=== PATIENT | male | born 1990 | race Caucasian/White ===

== ENCOUNTER 2024-05-07 11:08 | Outpatient (AMB) | payer OTHER, SELFPAY ==
--- NOTE | 2024-05-07 11:10 | MHC.PC.OV ---
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 Request Intake Note: patient here for New patient visit Bull Fiddle Player Required: No Allergies No Known Allergies Allergy (Verified 05/07/24 11:24) Medication List - Last Reconciled 05/07/24 by Zenia Hua CNP No Known Home Meds Tobacco use date assessed: 05/07/24 Dental Screening Dental Screen Date: 05/07/24 Did you have a dental visit in the last 12 months?: Yes Did you have a dental problem in the last 6 months where you did not have access to dental care?: No Was dental information given to patient?: Patient has dentist HPI HPI Comments History of Present Illness Details New patient Prior PCP:?ROBERT To. Does not recall name of provider or practice Last office Labs/visit/CPE: 2020 Acute issue(s): Dry skin to bilateral upper extremities The patient is a 33-year-old male presenting for a new patient visit to establish care. He previously saw a provider in 2020 for a physical exam and laboratory workup. The patient reports no known chronic medical conditions and is not currently taking any medications. He has no surgical history. However, he mentions a history of dry skin, particularly exacerbated during the winter, causing discomfort and itching. He uses a non-scented lotion to manage the dryness, yet reports that it sometimes causes significant discomfort. Family history includes maternal hypertension and paternal diabetes. The patient's lifestyle adjustments include recent efforts to improve diet and exercise habits after reaching a weight of 229 pounds, with a BMI of 32.9, denoting obesity. Health Maintenance - Comprehensive blood work ordered to evaluate kidney and liver function, cholesterol, and other markers. - Discussion on flu vaccination concluded with agreement to receive the vaccine at today's visit. - Last tetanus vaccine was at childhood. Advised on tetanus vaccine, though patient opted out for today. - Advised on healthy dietary changes to manage weight and reduce BMI from current 32.9. - Encouragement to maintain regular physical activity, reported as three days per week at the gym. - Recommended use of moisturizers such as Cetaphil or Lubriderm for dry skin management, and advised on the use of hydrocortisone cream for itching. Social History - Employment: Works in [employer] in [place]. - Substance Use: Denies smoking and alcohol use; uses flavored vape on and off approximately 10 days a month. - Exercise: Attends the gym three times weekly. - Nutritional Intake: Attempting to eat healthily and avoid carbohydrates to manage weight gain. - Weight Management: Currently weighs 229 pounds; BMI is 32.9. Previously 180 pounds. - Eye Exams: Conducted annually at work, last performed in May 2023. - Dental Care: Seen for dental cleaning in September 2023, routine every six months. 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 1. Little interest or pleasure in doing things: not at all 2. Feeling down, depressed, or hopeless: not at all 3. Trouble falling or staying asleep, or sleeping too much: not at all 4. Feeling tired or having little energy: not at all 5. Poor appetite or overeating: not at all 6. Feeling bad about yourself - or that you are a failure or have let yourself or your family down: not at all 7. Trouble concentrating on things, such as reading the newspaper or watching television: not at all 8. Moving or speaking so slowly that other people could have noticed. Or the opposite - being so fidgety or restless that you have been moving around a lot more than usual: not at all 9. Thoughts that you would be better off or of hurting yourself in some way: not at all Total score: 0 Depression Screening Interpretation: Negative Depression Screening Done: Yes 24629 - PHQ-9 Billing: Yes Source: Developed by Drs. Zane Killian, Evelin B.Adam Thomas and colleagues, with an educational atilio from [employer]. Thrive Questionnaire Date Thrive assessed: 05/07/24 I am a: Patient What is your living situation today?: I have a steady place to live Within the past 12 months, did the food you bought not last and you didn't have the money to get more?: Never true Within the past 12 months, did you worry whether your food would run out before you got money to buy more?: Never true Do you have trouble paying for medicines?: No Do you have trouble getting transportation to medical appointments?: No Do you have trouble paying your heating and electricity bill?: No Do you have trouble taking care of your child, family member or friend?: No Do you have trouble with day-to-day activities such as bathing, preparing meals, shopping, managing finances, etc.?: No Are you currently unemployed and looking for a job?: No Are you interested in more education?: Yes Please select the resources that you would like help with: Education Currently or been in a relationship where the following occur: No concerns reported THRIVE Score: 0 AUDIT C Alcohol Use Questionnaire (AUDIT-C) 1. How often do you have a drink containing alcohol?: Never 3. How often do you have six or more drinks on one occasion?: Never Total Score: 0 Score Reviewed/Action Taken: Yes RUTH-7 AMB Questionnaire RUTH-7 Date RUTH - 7 assessed: 05/07/24 Feeling nervous, anxious, or on edge: 0 = Not at all Not being able to stop or control worryin = Not at all Worrying too much about different things: 0 = Not at all Trouble relaxin = Not at all Being so restless that it is hard to sit still: 0 = Not at all Becoming easily annoyed or irritable: 0 = Not at all Feeling afraid as if something awful might happen: 0 = Not at all Total RUTH-7 score (0-4 normal; 5-9 mild; 10-14 moderate; 15-21 severe): 0 Source: Developed by Drs. Zane Killian, Adam Wells and colleagues, with an educational atilio from [employer]. RUTH-7 Assessment Billing RUTH-7 Assessment Tool: RUTH-7 Assessment 85035 Review of Systems Const Details: Denies chills, Denies fatigue, Denies fever(s), Denies headache(s) and Denies weakness HEENT Denies change in vision, Denies dizziness, Denies headache(s), Denies hearing loss, Denies nasal congestion, Denies sinus pain, Denies sinus pressure and Denies sore throat Card Denies chest pain, Denies lightheadedness, Denies dyspnea and Denies other (palpitations) Resp Denies cough, Denies dyspnea and Denies wheezing GI Denies abdominal pain, Denies melena, Denies hematochezia, Denies change in bowel habits, Denies dyspepsia and Denies nausea Denies hematuria and Denies dysuria Musc Denies abnormal gait, Denies myalgias, Denies arthralgias, Denies numbness and Denies tingling Skin/Breast Reports dry skin during winter, particularly on exposed areas of his arms, with occasional itching, Denies rash, Denies unusual bruising and Denies wounds Neuro Denies abnormal gait, Denies dizziness, Denies headache(s), Denies memory loss, Denies numbness, Denies Sensory deficit (Neuro), Denies tingling and Denies weakness Psych Denies anxiety, Denies depression and Denies memory loss Endo Denies cold intolerance, Denies fatigue, Denies heat intolerance, Denies polydipsia and Denies polyuria [place]/Lymph Denies easy bleeding and Denies easy bruising Aller/Immun Denies wheezing Physical exam (Primary Care) Vital Signs: Last Vital Signs Temp 97.5 F 05/07/24 11:18 Pulse 58 05/07/24 11:18 Resp 16 05/07/24 11:18 BP 124/73 05/07/24 11:18 Pulse Ox 97 05/07/24 11:18 Oxygen Delivery Method Room Air 05/07/24 11:18 BMI result Body Mass Index 32.9 Tobacco/Smoking Status: Tobacco use Status Tobacco use date assessed 05/07/24 05/07/24 11:23 Patient Tobacco Use Status Never used Tobacco 05/07/24 11:23 e-Cigarette/Vaping Use Currently Using (sometimes) 05/07/24 11:23 PHQ-9: PHQ-9 Score PHQ-9: Total score 0 05/07/24 12:10 Depression Screening Interpretation: Negative Thrive Assessment: Date of Thrive Assessment Date Thrive assessed 05/07/24 05/07/24 11:13 Currently or been in a relationship where the following occur: No concerns reported Const Other: General: no acute distress, well developed, alert and awake Nutritional Appearance: well nourished Orientation/consciousness: patient oriented x3 [facility] Head: Yes normocephalic and Yes atraumatic Ears: hearing grossly normal bilaterally and TM's normal bilaterally General nose exam: Normal external nose present and Normal nares present Mouth: Normal oral and palatal mucosa present and moist mucous membranes Teeth and gingiva: dentition normal Throat: Yes oropharynx normal Eyes Pupils: Equal, round and reactive pupils present and Pupil accommodation reflex normal EOM: EOMs intact bilaterally Neck Neck: Yes normal visual inspection, Yes no lymphadenopathy and Yes trachea midline Thyroid: Thyroid normal Carotids: no bruits Lymphatic: no lymphadenopathy noted Chest Chest palpation & inspection: normal inspection of the chest Resp Effort & Inspection: normal respiratory effort Auscultation: clear to auscultation bilaterally Cardio Rate: regular rate Rhythm: regular rhythm Heart sounds: S1 normal heart sound present, S2 normal heart sound present, no gallops, no murmurs and no rubs Bruits: no abdominal aortic bruits and no carotid bruits GI Palpation (GI): No Abdominal aortic bruit present, Soft to palpation, nontender, No hepatosplenomegaly present and No Rebound tenderness present Auscultation: normal bowel sounds General: Yes no CVA tenderness Back/Spine/Pelvis Back: no CVA tenderness Cervical Spine: cervical ROM normal and No Cervical spine tenderness Thoracic/Lumbar Spine: thoraco-lumbar ROM normal, No pain with thoraco-lumbar ROM, No thoracic spinal tenderness and No lumbar spinal tenderness Skin General: warm and dry. Normal skin color. Normal skin turgor. Dry skin noted to both arms Lesions: no lesions Rashes: no rashes Trauma: no lacerations or abrasions Wounds: no wounds Nails: normal Neuro General: patient oriented x3, gait normal and CN's II-XI intact bilaterally Cranial nerves: Yes Equal, round and reactive pupils present Cognition (Neuro): normal cognition Gait exam (Neuro): Normal gait present Motor exam (neuro): 5/5 motor strength present throughout Sensory Exam: No Sensory deficit (Neuro) Deep tendon reflexes (DTR's): Right patellar reflex intensity grade: 2+ and Left patellar reflex intensity grade: 2+ Extrem General: Yes normal to inspection, No edema and No calf tenderness Psych Appearance: grossly normal Affect: normal affect Attitude: cooperative Thought process: Normal thought process present Office Procedures Flu Questionnaire Does the patient have a severe egg allergy?: No Does the patient have severe life threatening allergies?: No Does the patient have a fever or illness today?: No Has the patient ever had Guillain-[place] Syndrome?: No Has the patient ever had any past reaction to a flu shot?: No Immunizations Fluarix Triv [id number] (PF) 45 mcg (15 mcg x 3)/0.5 mL IM syringe Performing Provider: Zenia Hua CNP Performing Location: [facility] Administered by: Maty Alexander RN on 05/07/24 12:09 Dose Route Admin Location Dispensed Lot Number Expiration Date NDC Manager Of Compensation 0.5 mL IM Left Deltoid 0.5 mL [id number] 11/23/24 [id number] [place] VIS Given Date VIS Provided VIS Publication Date 05/07/24 Single Vaccine 20 Eligibility Eligibility Date Funding Source Not [facility] Eligible 05/07/24 Private Coding Level of Care Code New Pt Level 3 (19589) New Pt Prev Care 18-39yr(88066 Diagnoses Normal physical examination, routine Z00.00 Laboratory tests ordered as part of a complete physical exam (CPE) Z00.00 Obesity (BMI 30.0-34.9) E66.811 Dry skin dermatitis L85.3 Additional Codes RUTH-7 Assessment Billing - RUTH-7 Assessment Tool: RUTH-7 Assessment 76420 ([id number]) PHQ-9 - 96426 - PHQ-9 Billing: Yes ([id number]) Assessment & Plan Assessment & Plan (1) Normal physical examination, routine: Code(s): Z00.00 - Encounter for general adult medical examination without abnormal findings Category: Medical Plan: No significant physical limitations noted. (2) Laboratory tests ordered as part of a complete physical exam (CPE): Code(s): Z00.00 - Encounter for general adult medical examination without abnormal findings Category: Medical Plan: Fasting labs ordered as part of a complete physical exam. Advised to fast for at least 10 hours before getting labs drawn. May drink water Verbalized understanding and agreed with treatment plan. (3) Obesity (BMI 30.0-34.9): Code(s): E66.811 - Obesity, class 1 Category: Medical Plan: He currently weighs 229 lb, BMI is 32.9. He will continue to make healthy dietary changes and exercise routinely. He will follow-up as needed. (4) Dry skin dermatitis: Code(s): L85.3 - Xerosis cutis Category: Medical Plan: Encouraged to use moisturizers such as Cetaphil or Lubriderm to dry skin on his arms. May use hydrocortisone cream for itching. Follow-up with worsening or new signs and symptoms. Verbalized understanding and agreed with the plan. Plan I discussed with the patient the importance of maintaining regular healthcare visits to establish a baseline for ongoing health support and prevention. We reviewed his current weight issues and the significance of a healthy diet and regular physical activity to improve his BMI and overall wellness. Management options for his dry skin were addressed, emphasizing proper moisturizing techniques and the intermittent use of hydrocortisone cream for itching relief. We talked about the flu vaccine and its necessity ahead of the flu season, and he consented to receive it during today's visit. I provided details on the potential benefit of the tetanus vaccine but noted that the patient declined it for now. I informed him about the upcoming comprehensive blood workup, advising him on fasting prior to the procedure to ensure accurate results. Lastly, I instructed on monitoring symptoms and attending his follow-up to discuss laboratory findings and any further management. Orders: Orders Complete Blood Count Auto Diff Today Z00.00 - Encounter for general adult medical examination without abnormal findings Comprehensive [place]. Panel Fast Today Z00.00 - Encounter for general adult medical examination without abnormal findings Lipid Panel Today Z00.00 - Encounter for general adult medical examination without abnormal findings TSH reflex Free T4 Today Z00.00 - Encounter for general adult medical examination without abnormal findings UA CC w/rflx Micro + Cult Today Z00.00 - Encounter for general adult medical examination without abnormal findings Influenza [id number] Immunization Today Z23 - Encounter for immunization Patient Instructions: - Receive flu vaccine today. - Begin using hydrocortisone cream as needed for itchy skin. - Use Cetaphil or Lubriderm moisturizer frequently for dry skin. - Maintain physical activity at least three times a week. - Follow dietary adjustments to manage weight and evaluate progress at the next visit. - Fast for 10-12 hours before completing the scheduled comprehensive blood work. Drink only water during this fasting period. - Return for telehealth follow-up in 2-3 weeks to discuss blood work results. - Monitor for any significant changes in symptoms, and seek care if necessary. Patient was informed and verbally consented to the use of an ambient scribe for clinic note documentation during this visit.
[2024-05-07 11:18] VITALS: BP 124/73; PULSE 58; RESP 16; TEMP 36.4; O2SAT 97; BMI 32.9
== END 2024-05-07 12:06 | disposition home or self-care (01) ==
PROVIDERS: PCP Nurse Practitioner Family; Visit Provider Nurse Practitioner Family
DX: Z00.00 Encounter for general adult medical examination without abnormal findings (principal); E66.811 Obesity, class 1; L85.3 Xerosis cutis; Z68.32 Body mass index [BMI] 32.0-32.9, adult; Z23 Encounter for immunization

== ENCOUNTER → 2024-05-07 11:08 | Outpatient (BNVA) | payer OTHER, SELFPAY | PROVIDERS: PCP Nurse Practitioner Family; Visit Provider Nurse Practitioner Family | DX: Z00.00 Encounter for general adult medical examination without abnormal findings (principal); Z23 Encounter for immunization; E66.811 Obesity, class 1; Z68.32 Body mass index [BMI] 32.0-32.9, adult; L85.3 Xerosis cutis | CPT/HCPCS: 90471; 90656; 96127 ==

== ENCOUNTER 2024-05-26 09:24 | Outpatient (REF) | payer OTHER, SELFPAY ==
[2024-05-26 11:25] LABS: MANUAL DIFF FLAG NO
[2024-05-26 11:28] LABS: Basophils Percent Auto 0.4 % (0-2); Eosinophils Absolute Auto 0.2 X10*3/uL (0.0-0.4); Eosinophils Percent Auto 2.5 % (0-4); Hematocrit 38.7 % (42.0-52.0); Hemoglobin 13.5 g/dl (14.0-18.0); Imm Gran Abs Auto 0.02 X10*3/uL (0.00-0.03); Imm Gran Pct Auto 0.3 % (0.0-0.4); Lymphocytes Absolute Auto 2.8 X10*3/uL (1.2-4.9); Lymphocytes Percent Auto 41.1 % (20-40); Mean Corpuscular HGB Conc 34.9 g/dl (31.0-36.0); Mean Corpuscular Hemoglobin 28.5 pg (27.0-33.0); Mean Corpuscular Volume 81.8 fL (80.0-98.0); Monocytes Absolute Auto 0.6 X10*3/uL (0.1-1.2); Monocytes Percent Auto 8.5 % (2-11); Neutrophils Absolute Auto 3.2 x10*3/uL (2.0-8.3); Neutrophils Percent Auto 47.2 % (45-73); Platelet Count 271 X10*3/uL (160-400); Red Blood Count 4.73 X10*6/uL (4.60-5.80); Red Cell Distribution Width 13.1 % (11.0-16.0); White Blood Count 6.7 X10*3/uL (4.8-10.8)
[2024-05-26 12:27] LABS: Alanine Aminotransferase 31 U/L (0-40); Albumin Level 4.2 g/dL (3.5-5.0); Alkaline Phosphatase 70 U/L (39-117); Anion Gap 10 (12-20); Aspartate Amino Transferase 31 U/L (5-37); Bilirubin Total 0.8 mg/dL (0.0-1.0); Blood Urea Nitrogen 13 mg/dL (9-16); Calcium 9.2 mg/dL (8.4-10.2); Carbon Dioxide 25 mmol/L (22-29); Chloride 108 mmol/L (96-108); Cholesterol 184 mg/dL (<200); Estimated Glomerular Filt Rate > 60; Glucose Fasting 87 mg/dL (60-99); HDL Cholesterol 40 mg/dL (>40); LDL Cholesterol Calculated 128 mg/dL (<100); Sodium 139 mmol/L (135-145); Total Protein 7.4 g/dL (6.5-8.0); Triglycerides 81 mg/dL (<150)
[2024-05-26 12:31] LABS: TSH reflex Free T4 2.61 uIU/mL (0.32-4.0)
[2024-05-26 15:13] LABS: Appearance Urine Clear; Color Urine Yellow; Glucose Urine UA Negative (Negative); Leukocyte Esterase Urine Negative (Negative); Nitrite Urine Negative (Negative); Urine Blood Negative (Negative); Urine Ketones Negative (Negative); Urine Protein Negative (Neg-Trace)
== END 2024-05-26 09:25 | disposition home or self-care (01) ==
LOC: HO.WFDLDS 09:24
PROVIDERS: Visit Provider Nurse Practitioner Family
DX: Z00.00 Encounter for general adult medical examination without abnormal findings (principal)
CPT/HCPCS: 36415; 80053; 80061; 81003; 84443; 85025

== ENCOUNTER 2024-05-29 14:30 | Outpatient (AMB) | payer OTHER, SELFPAY ==
--- NOTE | 2024-05-29 14:25 | A.OFFPC_ITS ---
Intake Visit Reasons: Telehealth 2-3 wks, labs review Intake Note: patient here for teleheath for lab review Calliope Player Required: No Allergies No Known Allergies Allergy (Verified 05/29/24 14:26) Tobacco use date assessed: 05/29/24 Dental Screening Dental Screen Date: 05/29/24 Did you have a dental visit in the last 12 months?: Yes Did you have a dental problem in the last 6 months where you did not have access to dental care?: No Was dental information given to patient?: Patient has dentist HPI HPI Comments History of Present Illness Details 33-year-old male presents for telehealth visit for review of recent lab results. He offers no complaints and denies acute symptoms at this time. 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 Current occupational exposures/hazards: No Cognitive needs: No Hearing needs: No Vision needs: No Questionnaire Thrive Questionnaire Date Thrive assessed: 05/06/24 I am a: Patient What is your living situation today?: I have a steady place to live Within the past 12 months, did the food you bought not last and you didn't have the money to get more?: Never true Within the past 12 months, did you worry whether your food would run out before you got money to buy more?: Never true Do you have trouble paying for medicines?: No Do you have trouble getting transportation to medical appointments?: No Do you have trouble paying your heating and electricity bill?: No Do you have trouble taking care of your child, family member or friend?: No Do you have trouble with day-to-day activities such as bathing, preparing meals, shopping, managing finances, etc.?: No Are you currently unemployed and looking for a job?: No Are you interested in more education?: Yes Please select the resources that you would like help with: Education Currently or been in a relationship where the following occur: No concerns reported THRIVE Score: 0 RUTH-7 AMB Questionnaire RUTH-7 Date RUTH - 7 assessed: 05/07/24 Source: Developed by Drs. Zane Killian, Evelin Love, Adam San and colleagues, with an educational atilio from [employer]. Review of Systems Const Details: Const Denies chills, Denies fatigue, Denies fever(s), Denies headache(s) and Denies weakness ENT Denies dizziness and Denies headache(s) Card Denies chest pain, Denies lightheadedness, Denies dyspnea and Denies other (Palpitations) Resp Denies cough, Denies dyspnea, Denies wheezing and Denies other ( shortness of breath) GI Denies abdominal pain, Denies melena, Denies hematochezia, Denies change in bowel habits, Denies dyspepsia and Denies nausea Denies hematuria and Denies dysuria Musc Denies abnormal gait, Denies myalgias, Denies arthralgias, Denies numbness and Denies tingling Skin/Breast Denies rash, Denies unusual bruising and Denies wounds Neuro Denies abnormal gait, Denies dizziness, Denies headache(s), Denies memory loss, Denies numbness, Denies Sensory deficit (Neuro), Denies tingling and Denies weakness Psych Denies anxiety, Denies depression, Denies memory loss Endo Denies cold intolerance, Denies fatigue, Denies heat intolerance, Denies polydipsia and Denies polyuria Aller/Immun Denies wheezing Physical exam (Primary Care) Tobacco/Smoking Status: Tobacco use Status Tobacco use date assessed 05/29/24 05/29/24 14:28 Patient Tobacco Use Status Never used Tobacco 05/29/24 14:28 e-Cigarette/Vaping Use Currently Using (sometimes) 05/29/24 14:28 Thrive Assessment: Date of Thrive Assessment Date Thrive assessed 05/06/24 05/29/24 14:28 Currently or been in a relationship where the following occur: No concerns reported Const Other: Telehealth visit. No physical exam. Telehealth Telehealth Telehealth Platform: Telephone Location of provider rendering services: practice address Location of patient: address on file Patient Identification confirmed using: Name, : Yes Patient verbally consented to treatment: Yes Patient verbally consented to billing insurance company: Yes Patient informed of any privacy concerns related to visit: Yes Coding Level of Care Code Tele New Pt Level 3 (06036) Diagnoses Mild anemia D64.9 Elevated LDL cholesterol level E78.00 Time Spent (min) 10 Assessment & Plan Assessment & Plan (1) Mild anemia: Code(s): D64.9 - Anemia, unspecified Category: Medical Plan: Recent H&H is slightly elevated, 13.5 and 38.7 respectively. MCV is on the low end of normal, 81.8. Will recheck CBC. Will check iron profile, folate and vitamin B12 levels. Will make changes as needed. Verbalized understanding and agreed with the plan. (2) Elevated LDL cholesterol level: Code(s): E78.00 - Pure hypercholesterolemia, unspecified Category: Medical Plan: Recent LDL level is slightly elevated, 128; HDL level is slightly low, 40. He admits to consuming significant amount of meat, whole diary, and cheese. Advised to limit foods high in saturated fat and avoid foods high in trans fat. Routine exercise encouraged. Fast for 10-12 hours, may drink water, and get blood work done 2-3 days before next visit. Follow-up for telehealth visit in 2 months or sooner with symptoms or concerns. Verbalized understanding and agreed with treatment plan. Orders: Orders Lipid Panel 2 Months E78.00 - Pure hypercholesterolemia, unspecified Complete Blood Count no Diff Today D64.9 - Anemia, unspecified Vitamin B12 and Folate Today D64.9 - Anemia, unspecified IRON PROFILE Today D64.9 - Anemia, unspecified
== END 2024-05-29 14:43 | disposition home or self-care (01) ==
LOC: HO.HMCFM 14:30
PROVIDERS: PCP Nurse Practitioner Family; Visit Provider Nurse Practitioner Family
DX: D64.9 Anemia, unspecified (principal); E78.00 Pure hypercholesterolemia, unspecified

== ENCOUNTER → 2024-05-29 14:30 | Outpatient (BNVA) | payer OTHER, SELFPAY | PROVIDERS: PCP Nurse Practitioner Family; Visit Provider Nurse Practitioner Family ==

== ENCOUNTER 2024-07-28 15:21 | Outpatient (REF) | payer OTHER, SELFPAY ==
[2024-07-28 18:41] LABS: Cholesterol 172 mg/dL (<200); HDL Cholesterol 43 mg/dL (>40); LDL Cholesterol Calculated 119 mg/dL (<100); Triglycerides 50 mg/dL (<150)
--- OUTSIDE RECORDS SUMMARY | 2024-07-28 19:27 | XMS_ITS | Encounter Summary ---
Author Organization [facility] Address [address] [place] [address] Care Team Providers Care Embedded Firmware Engineer Name Role Phone Neil Segundo MD Primary Care Provider [phone] Encounter Details Date Type Department Care Team (Late st Contact Info) Description 03/18/2020 Scanned Document [address] [id number] Neil Segundo MD [address] [place] [id number] Social History Tobacco Use Types Packs/Day Years Used Date Smoking Tobacco: Never Smokeless Tobacco: Never Comments:smokes [place] once i n a while Alcohol Use Standard Drinks/Week Comments Never 0 (1 standard drink = 0.6 oz pur e alcohol) AUDIT-C Answer Date Recorded Q1: How often do you have a drink containing alc ohol? Never 03/08/2020 Average Number of Drinks Not on file 020 Frequency of Binge Drinking Not on file 02/24 PHQ-2 Answer Date Recorded PHQ-2 Total Score 0 03/08/2020 Sex and Gender Information Value Date Recorded Sex Assigned at Male 03/20/2024 10:23 AM EDT Gender Identity Male 08/27/2020 6:15 PM EDT Sexual Orientation Heterosexual (straight) 08/30 2:53 PM EDT COVID-19 Exposure Response Date Recorded In the last month, have you been in contact with someone who was confirmed or suspected to have Coronavirus / COVID-19? No / Unsure 03/08/2020 2:37 PM EDT documented as of this encounter Plan of Treatment Not on file documented as of this encounter Visit Diagnoses Not on filedocumented in this encounter Care Teams Embedded Firmware Engineer Relationship Specialty Start Date End Date Neil Segundo MD [address] [place] [address] PCP - General Internal Medicine 03/08/20 11/01/22 documented as of this encounter
--- OUTSIDE RECORDS SUMMARY | 2024-07-28 19:27 | XMS_ITS | Encounter Summary ---
Author Organization [facility] Address [address] [place] [address] Care Team Providers Care Sales Promotion Manager Name Role Phone Neil Segundo MD Primary Care Provider [phone] Encounter Details Date Type Department Care Team (Late st Contact Info) Description 08/09/2020 Lab Requisition [facility] Drive Through [address] [place], [place] [phone] Freeman Sheikh MD [address] [place] [address] Encounter for laboratory testing for COVID-19 virus Social History Tobacco Use Types Packs/Day Years [...] have Coronavirus / COVID-19? No / Unsure 07/17/2020 1:05 PM EST documented as of this encounter Plan of Treatment Not on file documented as of this encounter Procedures Procedure Name Priority Date/Time Associated Diagnosis Comments COVID-19 (SARS-COV-2) - [facility] Routine 08/09/2020 11:44 AM EDT Encounter for laboratory testing for COVID-19 virus [ICD-10-CM] documented in this encounter Results * COVID-19 (SARS-COV-2) (SEMA4) (08/09/2020 11:44 AM EDT) COVID-19 RT-PCR NOT-DETEC ELIZABETH Not-Detec elizabeth 08/10/2020 8:59 PM EDT [facility] Comment:Interpretation: The viral RNA was not detected, making the COVID-19 diagnosis less likely. Clinical correlation is highly recommended.Final report signed by Lana Cheng, Ph.D., Laboratory DirectorTests performed at [facility] Nasopharyngeal swab / Unknown 08/09/2020 11:44 AM EDT 08/09/2020 11:44 AM EDT Narrative [facility] - 08/10/2020 8:59 PM EDT Performed by [facility] [address] [place] [address], CLIA# [id number] and [place] License# [id number] Freeman Sheikh MD MICROBIOLOGY - GENER AL ORDERABLES PABLO JAMISON documented in this encounter Visit Diagnoses Diagnosis Encounter for laboratory testing for COVID-19 virus documented in this encounter Care Teams Sales Promotion Manager Relationship Specialty Start Date End Date Neil Segundo MD [address] [place] [address] PCP - General Internal Medicine 03/08/20 11/01/22 documented as of this encounter
--- OUTSIDE RECORDS SUMMARY | 2024-07-28 19:27 | XMS_ITS | Encounter Summary ---
Author Organization [facility] Address [address] [place] [address] Care Team Providers Care Ripper Operator Name Role Phone Neil Segundo MD Primary Care Provider [phone] Encounter Details Date Type Department Care Team (Late st Contact Info) Description 07/16/2020 Lab Requisition [facility] Drive Through [address] [place], [place] [phone] Freeman Sheikh MD [address] [place] [address] Encounter for laboratory testing for COVID-19 virus [...] Date/Time Associated Diagnosis Comments COVID-19 (SARS-COV-2) - [facility] Routine 07/16/2020 2:44 PM EST Encounter for laboratory testing for COVID-19 virus [ICD-10-CM] documented in this encounter Results * COVID-19 (SARS-COV-2) (SEMA4) (07/16/2020 2:44 PM EST) COVID-19 RT-PCR NOT-DETEC ELIZABETH Not-Detec elizabeth 07/17/2020 4:14 PM EST [facility] Comment:Interpretation: The viral RNA was not detected, making the COVID-19 diagnosis less likely. Clinical correlation is highly recommended.Final report signed by Lana Cheng, Ph.D., Laboratory DirectorTests performed at [facility] Nasopharyngeal swab / Unknown 07/16/2020 2:44 PM EST 07/16/2020 2:44 PM EST Narrative [facility] - 07/17/2020 4:14 PM EST Performed by [facility]., [address] [place] [address], CLIA# [id number] and [place] License# [id number] Freeman Sheikh MD MICROBIOLOGY - GENER AL ORDERABLES PABLO JAMISON documented in this encounter Visit Diagnoses Diagnosis Encounter for laboratory testing for COVID-19 virus documented in this encounter Care Teams Ripper Operator Relationship Specialty Start Date End Date Neil Segundo MD [address] [place] [address] PCP - General Internal Medicine 03/08/20 11/01/22 documented as of this encounter
--- OUTSIDE RECORDS SUMMARY | 2024-07-28 19:27 | XMS_ITS | Clinical Summary ---
Author Organization [facility] Address [address] [place] [address] Care Team Providers Care Dater Assembler Name Role Phone Unavailable Primary Care Provider Unavailabl e Allergies No known active allergies Medications Medication Sig Dispensed Refills Start Date End Date Status triamcinolone (KENALOG) 0.025 % creamIndications:Ecze ma, unspecified type Apply topically 2 (two) times a day. 30 g 1 02/16/2022 Active Active Problems No known active problems Immunizations Name Administration Dates Next Due Covid-19 mRNA Primary Series Vaccine - Moderna 0.5 mL Full Dose 10/12/2020,09/14/2020 Influenza Inactivated/Split Preservative Free IM 03/08/2020 Tdap 03/08/2020 Family History Medical History Relation Name Comments Diabetes Father Hypertension Mother Relation Name Status Comments Father Alive Mother Alive Social History Tobacco Use Types Packs/Day Years [...] Orientation Heterosexual (straight) 08/30 2:53 PM EDT Last Filed Vital Signs Vital Sign Reading Time Taken Comments Blood Pressure 119/74 11/22/2020 5:52 PM EDT Pulse 59 11/22/2020 5:52 PM EDT Temperature 36.9 ??C (98.5 ??F) 11/22/2020 5:52 PM ED T Respiratory Rate 16 03/08/2020 2:51 PM EDT Oxygen Saturation 98% 11/22/2020 5:52 PM EDT Inhaled Oxygen Concentration - - Weight 88.9 kg (196 lb) 11/22/2020 5:52 PM EDT Height 175.3 cm (5' 9 ) 11/22/2020 5:52 PM EDT Body Mass Index 28.94 11/22/2020 5:52 PM EDT Plan of Treatment Health Maintenance Due Date Last Done Comments Hepatitis C Virus Screening 1990 HIV Screening 2005 Hepatitis B Vaccines (1 of 3 - 19+ 3-dose series) 2011 Influenza Vaccine 12/26/2023 07/05/2021, 03/08/2020 COVID-19 Vaccine (2023-2 5 season) 2024 10/12/2020, 09/14/2020 DTaP/Tdap/Td Vaccines (2 - T d or Tdap) 03/08/2030 03/08/2020 HPV Vaccines Aged Out No longer eligi ble based on patient's age to complete this topic Pneumococcal Vaccine: Pediatric (0-5 Years) and At-Risk Patients (6 to 49 Years) Aged Out No longer eligible b ased on patient's age to complete this topic Zenia Guy Personal/Family Self 1990 [address] [place] [address]
--- OUTSIDE RECORDS SUMMARY | 2024-07-28 19:27 | XMS_ITS | Encounter Summary ---
Author Organization [facility] Address [address] [place] [address] Care Team Providers Care Production Sampler Name Role Phone Neil Segundo MD Primary Care Provider [phone] Encounter Details Date Type Department Care Team (Late st Contact Info) Description 03/18/2020 Scanned Document [address] [phone] Neil Segundo MD [address] [place] [id number] Social History Tobacco Use Types Packs/Day Years [...] on filedocumented in this encounter Care Teams Production Sampler Relationship Specialty Start Date End Date Neil Segundo MD [address] [place] [address] PCP - General Internal Medicine 03/08/20 11/01/22 documented as of this encounter
--- OUTSIDE RECORDS SUMMARY | 2024-07-28 19:27 | XMS_ITS | Encounter Summary ---
Author Organization [facility] Address [address] [place] [address] Care Team Providers Care Louver Mortiser Operator Name Role Phone Neil Segundo MD Primary Care Provider [phone] Encounter Details Date Type Department Care Team (Late st Contact Info) Description 03/18/2020 Scanned Document [address] [phone] Neil Segundo MD [address] [place] [address] Social History Tobacco Use Types Packs/Day Years [...] on filedocumented in this encounter Care Teams Louver Mortiser Operator Relationship Specialty Start Date End Date Neil Segundo MD [address] [place] [address] PCP - General Internal Medicine 03/08/20 11/01/22 documented as of this encounter
== END 2024-07-28 15:22 | disposition home or self-care (01) ==
LOC: HO.WFDLDS 15:21
PROVIDERS: Visit Provider Nurse Practitioner Family
DX: E78.00 Pure hypercholesterolemia, unspecified (principal)
CPT/HCPCS: 36415; 80061

== ENCOUNTER 2024-08-04 13:53 | Outpatient (REF) | payer OTHER, SELFPAY ==
--- OUTSIDE RECORDS SUMMARY | 2024-08-04 16:55 | XMS_ITS | Encounter Summary ---
Author Organization [facility] Address [address] [place] [address] Care Team Providers Care Patrol Inspector Name Role Phone Neil Segundo MD Primary Care Provider [phone] Encounter Details Date Type Department Care Team (Late st Contact Info) Description 03/18/2020 Scanned Document [address] [phone] Neil Segundo MD [address] [place] [address] Social History Tobacco Use Types Packs/Day Years [...] on filedocumented in this encounter Care Teams Patrol Inspector Relationship Specialty Start Date End Date Neil Segundo MD [address] [place] [address] PCP - General Internal Medicine 03/08/20 11/01/22 documented as of this encounter
--- OUTSIDE RECORDS SUMMARY | 2024-08-04 16:55 | XMS_ITS | Clinical Summary ---
Author Organization [facility] Address [address] [place] [address] Care Team Providers Care Shoe Patternmaker Name Role Phone Unavailable Primary Care Provider [...] Personal/Family Self 1990 [address] [place] [address]
--- OUTSIDE RECORDS SUMMARY | 2024-08-04 16:55 | XMS_ITS | Encounter Summary ---
Author Organization [facility] Address [address] [place] [address] Care Team Providers Care Conflict Resolution Professional Name Role Phone Neil Segundo MD Primary Care Provider [phone] Encounter Details Date Type Department Care Team (Late st Contact Info) Description 07/16/2020 Lab Requisition [facility] Drive Through [address] [place], [place] [phone] Freeman Sheikh MD [address] [place] [address] Encounter for laboratory testing for COVID-19 virus [...] Date/Time Associated Diagnosis Comments COVID-19 (SARS-COV-2) - [facility] Routine 07/16/2020 2:44 PM EST Encounter for laboratory testing for COVID-19 virus [ICD-10-CM] documented in this encounter Results * COVID-19 (SARS-COV-2) (SEMA4) (07/16/2020 2:44 PM EST) COVID-19 RT-PCR NOT-DETEC ELIZABETH Not-Detec elizabeth 07/17/2020 4:14 PM EST [facility] Comment:Interpretation: The viral RNA was not detected, making the COVID-19 diagnosis less likely. Clinical correlation is highly recommended.Final report signed by Lana Cheng, Ph.D., Laboratory DirectorTests performed at [facility] Nasopharyngeal swab / Unknown 07/16/2020 2:44 PM EST 07/16/2020 2:44 PM EST Narrative [facility] - 07/17/2020 4:14 PM EST Performed by [facility]., [address] [place] [address], CLIA# [id number] and [place] License# [id number] Freeman Sheikh MD MICROBIOLOGY - GENER AL ORDERABLES PABLO JAMISON documented in this encounter Visit Diagnoses Diagnosis Encounter for laboratory testing for COVID-19 virus documented in this encounter Care Teams Conflict Resolution Professional Relationship Specialty Start Date End Date Neil Segundo MD [address] [place] [address] PCP - General Internal Medicine 03/08/20 11/01/22 documented as of this encounter
--- OUTSIDE RECORDS SUMMARY | 2024-08-04 16:55 | XMS_ITS | Encounter Summary ---
Author Organization [facility] Address [address] [place] [address] Care Team Providers Care Boiler Testing Technician Name Role Phone Neil Segundo MD Primary Care Provider [phone] Encounter Details Date Type Department Care Team (Late st Contact Info) Description 03/18/2020 Scanned Document [address] [phone] Neil Segundo MD [address] [place] [address] Social History Tobacco Use Types Packs/Day Years [...] on filedocumented in this encounter Care Teams Boiler Testing Technician Relationship Specialty Start Date End Date Neil Segundo MD [address] [place] [address] PCP - General Internal Medicine 03/08/20 11/01/22 documented as of this encounter
--- OUTSIDE RECORDS SUMMARY | 2024-08-04 16:55 | XMS_ITS | Encounter Summary ---
Author Organization [facility] Address [address] [place] [address] Care Team Providers Care Chemistry Technical Officer Name Role Phone Neil Segundo MD Primary Care Provider [phone] Encounter Details Date Type Department Care Team (Late st Contact Info) Description 03/18/2020 Scanned Document [address] [phone] Neil eSgundo MD [address] [place] [address] Social History Tobacco Use Types Packs/Day Years [...] on filedocumented in this encounter Care Teams Chemistry Technical Officer Relationship Specialty Start Date End Date Neil Segundo MD [address] [place] [address] PCP - General Internal Medicine 03/08/20 11/01/22 documented as of this encounter
--- OUTSIDE RECORDS SUMMARY | 2024-08-04 16:55 | XMS_ITS | Encounter Summary ---
Author Organization [facility] Address [address] [place] [address] Care Team Providers Care Wash Driller Helper Name Role Phone Neil Segundo MD Primary Care Provider [phone] Encounter Details Date Type Department Care Team (Late st Contact Info) Description 08/09/2020 Lab Requisition [facility] Drive Through [address] [place], [place] [phone] Freeman Sheikh MD [address] [place] [address] Encounter for laboratory testing for COVID-19 virus [...] Date/Time Associated Diagnosis Comments COVID-19 (SARS-COV-2) - [facility] Routine 08/09/2020 11:44 AM EDT Encounter for laboratory testing for COVID-19 virus [ICD-10-CM] documented in this encounter Results * COVID-19 (SARS-COV-2) (SEMA4) (08/09/2020 11:44 AM EDT) COVID-19 RT-PCR NOT-DETEC ELIZABETH Not-Detec elizabeth 08/10/2020 8:59 PM EDT [facility] Comment:Interpretation: The viral RNA was not detected, making the COVID-19 diagnosis less likely. Clinical correlation is highly recommended.Final report signed by Lana Cheng, Ph.D., Laboratory DirectorTests performed at [facility] Nasopharyngeal swab / Unknown 08/09/2020 11:44 AM EDT 08/09/2020 11:44 AM EDT Narrative [facility] - 08/10/2020 8:59 PM EDT Performed by [facility] [address] [place] [address], CLIA# [id number] and [place] License# [id number] Freeman Sheikh MD MICROBIOLOGY - GENER AL ORDERABLES PABLO JAMISON documented in this encounter Visit Diagnoses Diagnosis Encounter for laboratory testing for COVID-19 virus documented in this encounter Care Teams Wash Driller Helper Relationship Specialty Start Date End Date Neil Segundo MD [address] [place] [address] PCP - General Internal Medicine 03/08/20 11/01/22 documented as of this encounter
[2024-08-04 18:38] LABS: Hematocrit 38.9 % (42.0-52.0); Hemoglobin 13.4 g/dl (14.0-18.0); Mean Corpuscular HGB Conc 34.4 g/dl (31.0-36.0); Mean Corpuscular Hemoglobin 28.6 pg (27.0-33.0); Mean Corpuscular Volume 83.1 fL (80.0-98.0); Mean Platelet Volume 9.3 fL (9.4-12.4); Platelet Count 274 X10*3/uL (160-400); Red Blood Count 4.68 X10*6/uL (4.60-5.80); Red Cell Distribution Width 13.3 % (11.0-16.0); White Blood Count 6.7 X10*3/uL (4.8-10.8)
[2024-08-04 19:11] LABS: Iron 85 mcg/dL (45-160); Percent Iron Saturation 33 % (15-50); Total Iron Binding Capacity 258 mcg/dL (228-428); Unsaturated Iron Binding 173 ug/dL
[2024-08-04 19:57] LABS: Folate 4.4 ng/mL (> or = 4.0); Vitamin B12 372 pg/mL (200-900)
== END 2024-08-04 13:54 | disposition home or self-care (01) ==
LOC: HO.WFDLDS 13:53
PROVIDERS: Visit Provider Nurse Practitioner Family
DX: D64.9 Anemia, unspecified (principal)
CPT/HCPCS: 36415; 82607; 82746; 83540; 85027

== ENCOUNTER 2024-08-10 13:05 | Outpatient (AMB) | payer OTHER, SELFPAY ==
--- NOTE | 2024-08-10 13:01 | A.OFFPC_ITS ---
Intake Visit Reasons: Telehealth 2 mos anemia, elevated LDL Intake Note: patient here for 2 month follow up on anemia Library Circulation Clerk Required: No Allergies No Known Allergies Allergy (Verified 08/10/24 13:02) Tobacco use date assessed: 08/10/24 Dental Screening Dental Screen Date: 08/10/24 Did you have a dental visit in the last 12 months?: Yes Did you have a dental problem in the last 6 months where you did not have access to dental care?: No Was dental information given to patient?: Patient has dentist HPI HPI Comments History of Present Illness Details 34-year-old male [facility] for review of recent lab results. He offers no complaints and denies acute symptoms at this time. 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 Zane Killian, Evelin Love, Adam San and colleagues, with an educational atilio from [email or web address]. Review of Systems Const Details: Denies chills, Denies fatigue, Denies fever(s), Denies headache(s) and Denies weakness Cardiac Denies chest pain, Denies claudication, Denies leg edema, Denies lightheadedness, Denies palpitations, Denies dyspnea, Denies dyspnea on exertion, Denies orthopnea and Denies other (Loss of consciousness) Resp Denies cough, Denies excessive phlegm production, Denies dyspnea, Denies dyspnea on exertion, Denies snoring and Denies wheezing Physical exam (Primary Care) Tobacco/Smoking Status: Tobacco use Status Tobacco use date assessed 08/10/24 08/10/24 13:03 Patient Tobacco Use Status Never used Tobacco 08/10/24 13:03 e-Cigarette/Vaping Use Currently Using (sometimes) 08/10/24 13:03 Thrive Assessment: Date of Thrive Assessment Date Thrive assessed 05/06/24 08/10/24 13:03 Const Other: Patient is alert and oriented x3. Telehealth Telehealth Telehealth Platform: Telephone Location of provider rendering services: practice address Location of patient: address on file Patient Identification confirmed using: Name, : Yes Telehealth method: voice only Patient verbally consented to treatment: Yes Patient verbally consented to billing insurance company: Yes Patient informed of any privacy concerns related to visit: Yes Coding Level of Care Code Tele Est Pt Level 3 (23619) Diagnoses Mild anemia D64.9 Elevated LDL cholesterol level E78.00 Time Spent (min) 10 Assessment & Plan Assessment & Plan (1) Mild anemia: Code(s): D64.9 - Anemia, unspecified Category: Medical Plan: Recent H&H level is slightly low, 13.4/30.9 respectively; no significant changes from previous level. MCV is normal. Iron profile, vitamin B12, and folate levels are normal. No acute symptoms. Will monitor CBC level periodically or with associated symptoms or concerns. Verbalized understanding and agreed with the treatment plan. (2) Elevated LDL cholesterol level: Code(s): E78.00 - Pure hypercholesterolemia, unspecified Category: Medical Plan: Recent LDL level is slightly elevated, 119 from 128, HDL level is normal, 43 fr om 40. Advised to limit foods high in saturated fat and avoid foods high in trans fat. Routine exercise encouraged. Fast for 10-12 hours, may drink water, and perform lipid panel blood work 2-3 days before next visit. Follow-up for telehealth visit in 3 months or sooner with symptoms or concerns. Verbalized understanding and agreed with treatment plan. Orders: Orders Lipid Panel 3 Months E78.00 - Pure hypercholesterolemia, unspecified
== END 2024-08-10 13:28 | disposition home or self-care (01) ==
LOC: HO.HMCFM 13:05
PROVIDERS: PCP Nurse Practitioner Family; Visit Provider Nurse Practitioner Family
DX: D64.9 Anemia, unspecified (principal); E78.00 Pure hypercholesterolemia, unspecified

== ENCOUNTER 2024-10-08 09:13 | Outpatient (REF) | payer OTHER, SELFPAY ==
--- OUTSIDE RECORDS SUMMARY | 2024-10-08 10:25 | XMS_ITS | Encounter Summary ---
Author Organization [facility] Address [address] [place] [address] Care Team Providers Care Relations Mgr Name Role Phone Neil Segundo MD Primary Care Provider [phone] Encounter Details Date Type Department Care Team (Late st Contact Info) Description 07/16/[address] [place] [address] [place] [phone] Freeman Sheikh MD [address] [place] [address] Encounter for laboratory testing for COVID-19 virus [...] Associated Diagnosis Comments COVID-19 [facility]-COV-[facility]) - [facility] Routine 07/16/2020 2:44 PM EST Encounter for laboratory testing for COVID-19 virus [ICD-10-CM] documented in this encounter Results * COVID-19 ([facility]-COV-[facility]) [facility]) (07/16/2020 2:44 PM EST) COVID-19 RT-PCR NOT-DETEC ELIZABETH Not-Detec elizabeth 07/17/2020 4:14 PM EST PABLO ELIZONDO - YAQUELIN Comment:Interpretation: The viral RNA was not detected, making the COVID-19 diagnosis less likely. Clinical correlation is highly recommended.Final report signed by Lana Cheng, Ph.D., Laboratory DirectorTests performed at [facility] Microbiology Nasopharyngeal swab / Unknown 07/16/2020 2:44 PM EST 07/16/2020 2:44 PM EST [facility]ative [facility] - 07/17/2020 4:14 PM EST Performed by [facility]., [address] [place] [address], CLIA# [id number] and [place] License# [id number] us Freeman Sheikh MD MICROBIOLOGY - GENERAL ORDER ARISTIDES Final Result PABLO JAMISON documented in this encounter Visit Diagnoses Diagnosis Encounter for laboratory testing for COVID-19 virus documented in this encounter Care Teams Relations Mgr Relationship Specialty Start Date End Date Neil Segundo MD PCP - General Internal Medicine 03/08/20 11/01/22 documented as of this encounter
--- OUTSIDE RECORDS SUMMARY | 2024-10-08 10:25 | XMS_ITS | Encounter Summary ---
Author Organization [facility] Address [address] [place] [address] Care Team Providers Care Motorcycle Mechanic Name Role Phone Neil Segundo MD Primary Care Provider [phone] Encounter Details Date Type Department Care Team ([facility] st Contact Info) Description 03/18/2020 Scanned Document [address] [phone] Neil Segundo MD [address] [place] [address] Social History Tobacco Use Types Packs/Day Years [...] on filedocumented in this encounter Care Teams Motorcycle Mechanic Relationship Specialty Start Date End Date Neil Segundo MD PCP - General Internal Medicine 03/08/20 11/01/22 documented as of this encounter
--- OUTSIDE RECORDS SUMMARY | 2024-10-08 10:25 | XMS_ITS | Encounter Summary ---
Author Organization [facility] Address [address] [place] [address] Care Team Providers Care Manager Willow Name Role Phone Neil Segundo MD Primary Care Provider [phone] Encounter Details Date Type Department Care Team ([facility] st Contact Info) Description 03/18/2020 Scanned Document [address] [phone] Neil Segundo MD [address] [place] [address] Social History Tobacco Use Types Packs/Day Years [...] on filedocumented in this encounter Care Teams Manager Willow Relationship Specialty Start Date End Date Neil Segundo MD PCP - General Internal Medicine 03/08/20 11/01/22 documented as of this encounter
--- OUTSIDE RECORDS SUMMARY | 2024-10-08 10:25 | XMS_ITS | Encounter Summary ---
Author Organization [facility] Address [address] [place] [address] Care Team Providers Care Vertica Architect Name Role Phone Neil Segundo MD Primary Care Provider [phone] Encounter Details Date Type Department Care Team (Late st Contact Info) Description 08/09/[address] [facility] [address] [address] [facility] [address] [place] [phone] Freeman Sheikh MD [address] [place] [address] Encounter for laboratory testing for COVID-19 virus [...] Date/Time Associated Diagnosis Comments COVID-19 (SARS-COV-2) - [facility] Routine 08/09/2020 11:44 AM EDT [...] Lana Cheng, Ph.D., Laboratory DirectorTests performed at [x+1] Microbiology Nasopharyngeal swab / Unknown 08/09/2020 11:44 AM EDT 08/09/2020 11:44 AM EDT Narrative [facility] - WOODY[place] - 08/10/2020 8:59 PM EDT Performed by [facility]., [address] [place] [address], CLIA# [id number] and [place] License# [id number] us Freeman Sheikh MD MICROBIOLOGY - GENERAL ORDER ARISTIDES Final Result PABLO JAMISON documented in this encounter Visit Diagnoses Diagnosis Encounter for laboratory testing for COVID-19 virus documented in this encounter Care Teams Vertica Architect Relationship Specialty Start Date End Date Neil Segundo MD PCP - General Internal Medicine 03/08/20 11/01/22 documented as of this encounter
--- OUTSIDE RECORDS SUMMARY | 2024-10-08 10:25 | XMS_ITS | Encounter Summary ---
Author Organization [facility] Address [address] [place] [address] Care Team Providers Care Applications Programmer Analyst Name Role Phone Neil Segundo MD Primary Care Provider [phone] Encounter Details Date Type Department Care Team ([facility] st Contact Info) Description 03/18/2020 Scanned Document [address] [phone] Neil Segundo MD [address] [place] [address] Social History Tobacco Use Types Packs/Day Years [...] on filedocumented in this encounter Care Teams Applications Programmer Analyst Relationship Specialty Start Date End Date Neil Segundo MD PCP - General Internal Medicine 03/08/20 11/01/22 documented as of this encounter
--- OUTSIDE RECORDS SUMMARY | 2024-10-08 10:25 | XMS_ITS | Clinical Summary ---
Author Organization [facility] Address [address] [place] [address] Care Team Providers Care Landfill Gas Plant Field Technician Name Role Phone Unavailable Primary Care Provider [...] patient's age to complete this topic Insurance [facility] OUT STATE - PPO [facility] - O * Guarantor: Zenia Guy Account Type Relation to Patient Date of Phone Billing Address [employer] Liability Self 1990 [address] [place] [address]
[2024-10-08 11:49] LABS: Appearance Urine Clear; Color Urine Dark Yellow; Glucose Urine UA Negative (Negative); Leukocyte Esterase Urine Negative (Negative); Nitrite Urine Negative (Negative); PH 6.5 (5.0-9.0); Specific Gravity - Urine >= 1.030 (1.005-1.025); Urine Blood Negative (Negative); Urine Ketones Trace mg/dL (Negative); Urine Protein Trace mg/dL (Neg-Trace)
[2024-10-08 11:52] LABS: Bacteria Urine None Seen (None Seen); Hyaline Casts Urine 0-2 /LPF (0-2); RBC Urine 0-2 /HPF (0-2); Squamous Epithelial Cell Urine 0-2 /HPF (0-2); WBC Urine 0-5 /HPF (0-5)
== END 2024-10-08 09:14 | disposition home or self-care (01) ==
LOC: HO.LAB 09:13
PROVIDERS: PCP Nurse Practitioner Family; Visit Provider Physician Assistant Medical
DX: R39.9 Unspecified symptoms and signs involving the genitourinary system (principal)
CPT/HCPCS: 81001; 81002; 87086; 96127

== ENCOUNTER 2024-10-08 09:13 | Outpatient (AMB) | payer OTHER, SELFPAY ==
--- NOTE | 2024-10-08 09:17 | MHC.PC.OV ---
Vital Signs 10/08/24 09:24 Height 5 ft 10 in Weight 220 lb 4 oz BMI 31.6 BP 102/64 Blood Pressure Location Rt brachial Position Sitting Respiration 15 Pulse 66 Pulse Source Pulse Oximeter Temp 97.9 F Temp Source Temporal Artery Scan Pulse Oximetry (%) 98 Oxygen Delivery Method Room Air Intake Visit Reasons: Urinary tract infection Intake Note: Zenia presents in the office today for a UTI. Allergies No Known Allergies Allergy (Verified 10/08/24 09:23) Tobacco use date assessed: 10/08/24 Dental Screening Dental Screen Date: 10/08/24 Did you have a dental visit in the last 12 months?: Yes Did you have a dental problem in the last 6 months where you did not have access to dental care?: No Was dental information given to patient?: No HPI HPI Comments History of Present Illness Details This is a 34-year-old male who presents today for concerns of a UTI. The symptoms began 2 days ago the night after he had intercourse with his . He reports burning with urination and urinary frequency. He increased his fluid intake. Denies history of kidney stones. Denies fevers, chills, abdominal or flank pain, hematuria, abdominal pain, nausea, vomiting, diarrhea, testicular pain, penile discharge. ROS As noted in HPI Physical exam: Constitutional: Alert, in no distress. Respiratory: Clear to auscultation. Cardiovascular: S1 S2 regular. No murmurs. Gastrointestinal: Abdomen soft, non-tender, non-distended. Normal bowel sounds. No palpable masses. Genitourinary: No costovertebral angle tenderness. Extremities: Warm and well perfused. No clubbing, cyanosis or edema. 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 1. Little interest or pleasure in doing things: not at all 2. Feeling down, depressed, or hopeless: not at all 3. Trouble falling or staying asleep, or sleeping too much: not at all 4. Feeling tired or having little energy: not at all 5. Poor appetite or overeating: not at all 6. Feeling bad about yourself - or that you are a failure or have let yourself or your family down: not at all 7. Trouble concentrating on things, such as reading the newspaper or watching television: not at all 8. Moving or speaking so slowly that other people could have noticed. Or the opposite - being so fidgety or restless that you have been moving around a lot more than usual: not at all 9. Thoughts that you would be better off or of hurting yourself in some way: not at all Total score: 0 Depression Screening Interpretation: Negative Depression Screening Done: Yes 72205 - PHQ-9 Billing: Yes Source: Developed by Drs. Zane Killian, Evelin Love, Adam San and colleagues, with an educational atilio from [employer]. Thrive Questionnaire Date Thrive assessed: 10/08/24 I am a: Patient What is your living situation today?: I have a steady place to live Within the past 12 months, did the food you bought not last and you didn't have the money to get more?: Never true Within the past 12 months, did you worry whether your food would run out before you got money to buy more?: Never true Do you have trouble paying for medicines?: No Do you have trouble getting transportation to medical appointments?: No Do you have trouble paying your heating and electricity bill?: No Do you have trouble taking care of your child, family member or friend?: No Do you have trouble with day-to-day activities such as bathing, preparing meals, shopping, managing finances, etc.?: No Are you currently unemployed and looking for a job?: No Are you interested in more education?: Yes Please select the resources that you would like help with: Education Currently or been in a relationship where the following occur: No concerns reported THRIVE Score: 0 AUDIT C Alcohol Use Questionnaire (AUDIT-C) 1. How often do you have a drink containing alcohol?: Never Total Score: 0 RUTH-7 AMB Questionnaire RUTH-7 Date RUTH - 7 assessed: 10/08/24 Feeling nervous, anxious, or on edge: 0 = Not at all Not being able to stop or control worryin = Not at all Worrying too much about different things: 0 = Not at all Trouble relaxin = Not at all Being so restless that it is hard to sit still: 0 = Not at all Becoming easily annoyed or irritable: 0 = Not at all Feeling afraid as if something awful might happen: 0 = Not at all Total RUTH-7 score (0-4 normal; 5-9 mild; 10-14 moderate; 15-21 severe): 0 Source: Developed by Drs. Zane Killian, Evelin Love, Adam San and colleagues, with an educational atilio from [employer]. RUTH-7 Assessment Billing RUTH-7 Assessment Tool: RUTH-7 Assessment 08259 Physical exam (Primary Care) Vital Signs: Last Vital Signs Temp 97.9 F 10/08/24 09:24 Pulse 66 10/08/24 09:24 Resp 15 10/08/24 09:24 BP 102/64 10/08/24 09:24 Pulse Ox 98 10/08/24 09:24 Oxygen Delivery Method Room Air 10/08/24 09:24 BMI result Body Mass Index 31.6 Tobacco/Smoking Status: Tobacco use Status Tobacco use date assessed 10/08/24 10/08/24 09:28 Patient Tobacco Use Status Never used Tobacco 10/08/24 09:24 e-Cigarette/Vaping Use Currently Using (sometimes) 10/08/24 09:24 PHQ-9: PHQ-9 Score PHQ-9: Total score 0 10/08/24 09:28 Depression Screening Interpretation: Negative Thrive Assessment: Date of Thrive Assessment Date Thrive assessed 10/08/24 10/08/24 09:28 Currently or been in a relationship where the following occur: No concerns reported Results AMB Urinalysis Dipstick UR Leukocytes Small Last Edit by Malka Bustamante MA on 10/08/24 09:36 UR Nitrite Negative Last Edit by Malka Bustamante MA on 10/08/24 09:36 UR Urobilinogen 1 Last Edit by Malka Bustamante MA on 10/08/24 09:36 UR Protein Trace Last Edit by Malka Bustamante MA on 10/08/24 09:36 UR Ph 6.0 Last Edit by Malka Bustamante MA on 10/08/24 09:36 UR Blood Negative Last Edit by Malka Bustamante MA on 10/08/24 09:36 UR Specific [place] 1.020 Last Edit by Malka Bustamante MA on 10/08/24 09:36 UR Ketone Negative Last Edit by Malka Bustamante MA on 10/08/24 09:36 UR Bilirubin Negative Last Edit by Malka Bustamante MA on 10/08/24 09:36 UR Glucose Negative Last Edit by Malka Bustamante MA on 10/08/24 09:36 Coding Level of Care Code Est Pt Level 3 (47960) Complex EM visit Add On G2211 Diagnoses UTI symptoms R39.9 Additional Codes RUTH-7 Assessment Billing - RUTH-7 Assessment Tool: RUTH-7 Assessment 15315 ([id number]) PHQ-9 - 34529 - PHQ-9 Billing: Yes ([id number]) Assessment & Plan Assessment & Plan (1) UTI symptoms: Code(s): R39.9 - Unspecified symptoms and signs involving the genitourinary system Category: Medical Plan Urine dip is equivocal. Given symptoms consistent with UTI he will start treatment while waiting for urine culture. Prescribed Macrobid 1 pill twice daily for 7 days. Take with food. Have yogurt or probiotics. Complete entire course of medication. He was instructed to call if symptoms worsen and go to the ER if he develops concerning worsening symptoms such as flank pain, nausea and vomiting, fevers or chills or other concerning symptoms. He verbalizes understanding. He will follow up as needed for this problem. Orders: Orders Urine Culture Today R39.9 - Unspecified symptoms and signs involving the genitourinary system UA w Microscopic Today R39.9 - Unspecified symptoms and signs involving the genitourinary system AMB Urinalysis Dipstick Today R30.0 - Dysuria, Z00.00 - Encounter for general adult medical examination without abnormal findings Medications: New nitrofurantoin monohyd/m-cryst 100 mg (Macrobid) must administer with a meal/food 100 mg PO BID 14 caps 0RF
[2024-10-08 09:24] VITALS: BP 102/64; PULSE 66; RESP 15; TEMP 36.6; O2SAT 98; BMI 31.6
--- OUTSIDE RECORDS SUMMARY | 2024-10-08 09:48 | XMS_ITS | Encounter Summary ---
Author Organization [facility] Address [address] [place] [address] Care Team Providers Care In File Operator Name Role Phone Neil Segundo MD Primary Care Provider [phone] Encounter Details Date Type Department Care Team (Late st Contact Info) Description 08/09/[address] [facility] [address] [facility] [address] [place] [phone] Freeman Sheikh MD [address] [place] [address] Encounter for laboratory testing for COVID-19 virus [...] Assigned at Male 03/20/2024 10:23 AM EDT Legal Sex Male 9:56 AM EDT Gender Identity Male 08/27/2020 6:15 [...] Associated Diagnosis Comments COVID-19 (SARS-COV-2) - [facility] Routine 08/09/2020 11:44 AM EDT Encounter for laboratory testing for COVID-19 virus [ICD-10-CM] documented in this encounter Results * COVID-19 (SARS-COV-2) ([facility]) (08/09/2020 11:44 AM EDT) COVID-19 RT-PCR NOT-DETEC ELIZABETH Not-Detec elizabeth 08/10/2020 8:59 PM EDT KRISTA CARO JAMISON Comment:Interpretation: The viral RNA was not detected, making the COVID-19 diagnosis less likely. Clinical correlation is highly recommended.Final report signed by Lana Cheng, Ph.D., Laboratory DirectorTests performed at [facility] Microbiology Nasopharyngeal swab / Unknown 08/09/2020 11:44 AM EDT 08/09/2020 11:44 AM EDT Narrative [facility] - [place] - 08/10/2020 8:59 PM EDT Performed by [facility]., [address] [place] [address], CLIA# [id number] and [place] License# [id number] us Freeman Sheikh MD MICROBIOLOGY - GENERAL ORDER ARISTIDES Final Result PABLO JAMISON documented in this encounter Visit Diagnoses Diagnosis Encounter for laboratory testing for COVID-19 virus documented in this encounter Care Teams In File Operator Relationship Specialty Start Date End Date Neil Segundo MD PCP - General Internal Medicine 03/08/20 11/01/22 documented as of this encounter
--- OUTSIDE RECORDS SUMMARY | 2024-10-08 09:48 | XMS_ITS | Encounter Summary ---
Author Organization [facility] Address [address] [place] [address] Care Team Providers Care Hemodialysis Charge Nurse Name Role Phone Neil Segundo MD Primary Care Provider [phone] Encounter Details Date Type Department Care Team ([facility] st Contact Info) Description 03/18/2020 Scanned Document [address] [phone] Neil Segundo MD [address] [place] [address] Social History Tobacco Use Types Packs/Day Years [...] on filedocumented in this encounter Care Teams Hemodialysis Charge Nurse Relationship Specialty Start Date End Date Neil Segundo MD PCP - General Internal Medicine 03/08/20 11/01/22 documented as of this encounter
--- OUTSIDE RECORDS SUMMARY | 2024-10-08 09:48 | XMS_ITS | Encounter Summary ---
Author Organization [facility] Address [address] [place] [address] Care Team Providers Care Finance Insurance Manager Name Role Phone Neil Segundo MD Primary Care Provider [phone] Encounter Details Date Type Department Care Team ([facility] st Contact Info) Description 03/18/2020 Scanned Document [address] [phone] Neil Segundo MD [address] [place] [address] Social History Tobacco Use Types Packs/Day Years [...] on filedocumented in this encounter Care Teams Finance Insurance Manager Relationship Specialty Start Date End Date Neil Segundo MD PCP - General Internal Medicine 03/08/20 11/01/22 documented as of this encounter
--- OUTSIDE RECORDS SUMMARY | 2024-10-08 09:48 | XMS_ITS | Encounter Summary ---
Author Organization [facility] Address [address] [place] [address] Care Team Providers Care Arts Therapist Name Role Phone Neil Segundo MD Primary Care Provider [phone] Encounter Details Date Type Department Care Team (Late st Contact Info) Description 07/16/2020 Lab Requisition [place] [facility] [address] Through [address] [place] [phone] Freeman Sheikh MD [address] [place] [address] Encounter for laboratory testing for COVID-19 virus [...] Date/Time Associated Diagnosis Comments COVID-19 (SARS-COV-2) - [facility] Routine 07/16/2020 2:44 PM EST Encounter for laboratory testing for COVID-19 virus [ICD-10-CM] documented in this encounter Results * COVID-19 (SARS-COV-2) ([facility]) (07/16/2020 2:44 PM EST) COVID-19 RT-PCR NOT-DETEC ELIZABETH Not-Detec elizabeth 07/17/2020 4:14 PM EST PABLO ELIZONDO - YAQUELIN Comment:Interpretation: The viral RNA was not detected, making the COVID-19 diagnosis less likely. Clinical correlation is highly recommended.Final report signed by Lnaa Cheng, Ph.D., Laboratory DirectorTests performed at [facility] Microbiology Nasopharyngeal swab / Unknown 07/16/2020 2:44 PM EST 07/16/2020 2:44 PM EST [facility]ative [facility] - 07/17/2020 4:14 PM EST Performed by [facility] [address] [place] [address], CLIA# [id number] and [place] License# [id number] us Freeman Sheikh MD MICROBIOLOGY - GENERAL ORDER ARISTIDES Final Result PABLO JAMISON documented in this encounter Visit Diagnoses Diagnosis Encounter for laboratory testing for COVID-19 virus documented in this encounter Care Teams Arts Therapist Relationship Specialty Start Date End Date Neil Segundo MD PCP - General Internal Medicine 03/08/20 11/01/22 documented as of this encounter
--- OUTSIDE RECORDS SUMMARY | 2024-10-08 09:48 | XMS_ITS | Encounter Summary ---
Author Organization [facility] Address [address] [place] [address] Care Team Providers Care Logistics Team Lead Name Role Phone Neil Segundo MD Primary Care Provider [phone] Encounter Details Date Type Department Care Team ([facility] st Contact Info) Description 03/18/2020 Scanned Document [address] [phone] Neil Segundo MD [address] [place] [address] Social History Tobacco Use Types Packs/Day Years [...] on filedocumented in this encounter Care Teams Logistics Team Lead Relationship Specialty Start Date End Date Neil Segundo MD PCP - General Internal Medicine 03/08/20 11/01/22 documented as of this encounter
--- OUTSIDE RECORDS SUMMARY | 2024-10-08 09:48 | XMS_ITS | Clinical Summary ---
Author Organization [facility] Address [address] [place] [address] Care Team Providers Care Builder'S Labourer Name Role Phone Unavailable Primary Care Provider Unavailabl e Allergies No known active allergies Medications triamcinolone (KENALOG) 0.025 % creamIndications :Eczema, unspecified type Apply topically 2 (two) times a day. 30 g 1 2 Active Active Problems No known active problems Immunizations Immunization Administration Dates Next Due Covid-19 mRNA Primary [...] of 3 - 19+ 3-dose series) 2011 COVID-19 Vaccine (2023-2 5 season) 2024 10/12/2020, 09/14/2020 Influenza Vaccine 12/25/2024 07/05/2021, 03/08/2020 DTaP/Tdap/Td Vaccines (2 - T d or Tdap) 03/08/2030 03/08/2020 HPV Vaccines Aged Out No longer eligi ble based on patient's age to complete this topic Pneumococcal Vaccine: Pediatric (0-5 Years) and At-Risk Patients (6 to 49 Years) Aged Out No longer eligible b ased on patient's age to complete this topic Insurance [facility] OUT STATE - PPO [facility] - O * Guarantor: Zenia Guy Account Type Relation to Patient Date of Phone Billing Address Third [employer] Liability Self 1990 [address] [place] [address]
== END 2024-10-08 09:44 | disposition home or self-care (01) ==
LOC: HO.HMCFM 09:14
PROVIDERS: PCP Nurse Practitioner Family; Visit Provider Physician Assistant Medical
DX: R30.0 Dysuria (principal); Z00.00 Encounter for general adult medical examination without abnormal findings; R39.9 Unspecified symptoms and signs involving the genitourinary system

== ENCOUNTER 2025-01-14 09:06 | Outpatient (REF) | payer OTHER, SELFPAY ==
--- OUTSIDE RECORDS SUMMARY | 2025-01-14 10:09 | XMS_ITS | Encounter Summary ---
Author Organization [address] [address] Care Team Providers Care Blister Rust Eradicator Name Role Phone Neil Segundo MD Primary Care Provider [phone] Zenia Hua NP Primary Care Provider [phone] Encounter Details Date Type Department Care Team ([facility] st Contact Info) Description 03/18/2020 Scanned Document [address] [place] [phone] Neil Segundo MD [address] [place] [address] Social History Tobacco Use Types Packs/Day Years [...] on filedocumented in this encounter Care Teams Blister Rust Eradicator Relationship Specialty Start Date End Date Neil Segundo MD PCP - General Internal Medicine 03/08/20 11/01/22 Zenia Hua NP [address] [place] [address] PCP - General 11/24/24 documented as of this encounter
--- OUTSIDE RECORDS SUMMARY | 2025-01-14 10:09 | XMS_ITS ---
Author Name [facility] Organization Unknown History of Medication Use Medication Directions Dispensed Refills Start Date End Date Stat us triamcinolone (KENALOG) 0.025 % cream Apply topically 2 (two) times a day. 02/16/2022 active Problems Problem Status Onset Date Problem Type Date of Resoluti on Source Dysfunction of right eustachian tube active EncounterDiagnosisAct [facility] Immunizations Vaccine Date Source Lot Number Status Covid-19 mRNA Primary Series Vaccine - Moderna 0.5 mL Full Dose 10/12/2020 [facility] [id number] completed Covid-19 mRNA Primary Series Vaccine - Moderna 0.5 mL Full Dose 09/14/2020 [facility] [id number] completed Tdap 03/08/2020 [facility] [id number] completed Encounters Encounter Type Encounter Reason Primary Diagnosis Location Date Ambulatory Unspecified eustachian tube disorder, right ear Unspecified eustachian tube disorder, right ear [facility] 11/24/2024 Care Team Organization Name Specialty Phone Email Start Date End Da te [facility] 11/25/2024 12/23/2024 [facility] 11/24/2024 [facility]ENON [facility] 11/24/2024 [facility] ESTRELLA RAZA Primary Care
[2025-01-14 12:02] LABS: Cholesterol 169 mg/dL (<200); HDL Cholesterol 37 mg/dL (>40); Triglycerides 85 mg/dL (<150)
== END 2025-01-14 09:07 | disposition home or self-care (01) ==
LOC: HO.WFDLDS 09:06
PROVIDERS: Nurse Practitioner Family; Visit Provider Physician Assistant Medical
DX: E78.00 Pure hypercholesterolemia, unspecified (principal)
CPT/HCPCS: 36415; 80061

== ENCOUNTER 2025-01-19 13:42 | Outpatient (AMB) | payer OTHER, SELFPAY ==
--- NOTE | 2025-01-19 13:38 | A.OFFPC_ITS ---
Intake Visit Reasons: 3 mos elevated LDL Intake Note: patient here for 3 month follow up on elevated LDL Cert Occupational Therapy Asst Required: No Allergies No Known Allergies Allergy (Verified 01/19/25 13:38) Tobacco use date assessed: 01/19/25 Dental Screening Dental Screen Date: 01/19/25 Did you have a dental visit in the last 12 months?: Yes Did you have a dental problem in the last 6 months where you did not have access to dental care?: No Was dental information given to patient?: Patient has dentist HPI HPI Comments History of Present Illness Details 44-year-old male [facility] for review of recent lab results. He has been making healthy lifestyle changes and recently lost 10 lb. He offers no complaints and denies acute symptoms at this time. 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 Zane Killian, Evelin Love, Adam San and colleagues, with an educational atilio from [employer]. Review of Systems Const Details: Denies chills, Denies fatigue, Denies fever(s), Denies headache(s) and Denies weakness Cardiac Denies chest pain, Denies claudication, Denies leg edema, Denies lightheadedness, Denies palpitations, Denies dyspnea, Denies dyspnea on exertion, Denies orthopnea and Denies other (Loss of consciousness) Resp Denies cough, Denies excessive phlegm production, Denies dyspnea, Denies dyspnea on exertion, Denies snoring and Denies wheezing Physical exam (Primary Care) Tobacco/Smoking Status: Tobacco use Status Tobacco use date assessed 01/19/25 01/19/25 13:39 Patient Tobacco Use Status Never used Tobacco 01/19/25 13:39 e-Cigarette/Vaping Use Currently Using 01/19/25 13:39 Thrive Assessment: Date of Thrive Assessment Date Thrive assessed 10/07/24 01/19/25 13:39 Const Other: Patient is alert and oriented x3 Telehealth Telehealth Telehealth Platform: Telephone Location of provider rendering services: practice address Location of patient: address on file Patient Identification confirmed using: Name, : Yes Telehealth method: voice only Patient verbally consented to treatment: Yes Patient verbally consented to billing insurance company: Yes Patient informed of any privacy concerns related to visit: Yes Coding Level of Care Code Tele Est Pt Level 3 (23694) Diagnoses Elevated LDL cholesterol level E78.00 Time Spent (min) 10 Assessment & Plan Assessment & Plan (1) Elevated LDL cholesterol level: Code(s): E78.00 - Pure hypercholesterolemia, unspecified Category: Medical Plan: Recent LDL level is elevated, 115, HDL level is low, 37, triglycerides and total cholesterol levels are normal. Previous LDL level was 119. Advised to limit foods high in saturated fat and avoid foods high in trans fat. Encouraged Buhl 3 fatty acids. Routine exercise encouraged. Will check lipid panel level when he has his physical in 3 months. Follow-up for an extended physical exam after 05/07/2025. Return sooner with symptoms or concerns. Verbalized understanding and agreed with the plan.
--- OUTSIDE RECORDS SUMMARY | 2025-01-19 14:40 | XMS_ITS | Encounter Summary ---
Author Organization [facility] Address [address] [place] [address] Care Team Providers Care Zoo Keeper Name Role Phone Neil Segundo MD Primary Care Provider [phone] Zenia Hua NP Primary Care Provider [phone] Encounter Details Date Type Department Care Team (Late st Contact Info) Description 08/09/[address] [facility] [address] Through [address] [place] [phone] Freeman Sheikh MD [address] [place] [address] Encounter for laboratory testing for COVID-19 virus [...] Date/Time Associated Diagnosis Comments COVID-19 (SARS-COV-2) - [facility] Routine 08/09/2020 11:44 AM EDT Encounter for laboratory testing for COVID-19 virus [ICD-10-CM] documented in this encounter Results * COVID-19 (SARS-COV-2) (SEMA4) (08/09/2020 11:44 AM EDT) COVID-19 RT-PCR NOT-DETEC ELIZABETH Not-Detec elizabeth 08/10/2020 8:59 PM EDT [facility] Comment:Interpretation: The viral RNA was not detected, making the COVID-19 diagnosis less likely. Clinical correlation is highly recommended.Final report signed by Lana Cheng, Ph.D., Laboratory DirectorTests performed at [facility] Nasopharyngeal swab / Unknown 08/09/2020 11:44 AM EDT 08/09/2020 11:44 AM EDT Narrative [facility] - 08/10/2020 8:59 PM EDT Performed by [facility] [address] [place] [address], CLIA# [id number] and [place] License# [id number] Freeman Sheikh MD MICROBIOLOGY - GENERAL ORDER ARISTIDES Final Result [facility] documented in this encounter Visit Diagnoses Diagnosis Encounter for laboratory testing for COVID-19 virus documented in this encounter Care Teams Zoo Keeper Relationship Specialty Start Date End Date Neil Segundo MD PCP - General Internal Medicine 03/08/20 11/01/22 Zenia Hua NP [address] [place] [address] PCP - General 11/24/24 documented as of this encounter
--- OUTSIDE RECORDS SUMMARY | 2025-01-19 14:40 | XMS_ITS | Encounter Summary ---
Author Organization [address] [address] Care Team Providers Care Chute Builder Name Role Phone Neil Segundo MD Primary Care Provider [phone] Zenia Hua NP Primary Care Provider Encounter Details Date Type Department Care Team ([facility] st Contact Info) Description 03/18/2020 Scanned Document [address] [place] [phone] Neil Segundo MD [address] [place] [phone] Social History Tobacco Use Types Packs/Day Years [...] on filedocumented in this encounter Care Teams Chute Builder Relationship Specialty Start Date End Date Neil Segundo MD PCP - General Internal Medicine 03/08/20 11/01/22 Zenia Hua NP [address] [place] [address] PCP - General 11/24/24 documented as of this encounter
--- OUTSIDE RECORDS SUMMARY | 2025-01-19 14:40 | XMS_ITS | Encounter Summary ---
Author Organization [address] [address] Care Team Providers Care Sql Etl Developer Name Role Phone Neil Segundo MD Primary Care Provider Zenia Hua NP Primary Care Provider [phone] Encounter Details Date Type Department Care Team ([facility] st Contact Info) Description 03/18/2020 Scanned Document [address] [place] [phone] Neil Segundo MD [address] [place] [phone] Social History Tobacco Use Types Packs/Day Years [...] on filedocumented in this encounter Care Teams Sql Etl Developer Relationship Specialty Start Date End Date Neil Segundo MD PCP - General Internal Medicine 03/08/20 11/01/22 Zenia Hua NP [address] [place] [address] PCP - General 11/24/24 documented as of this encounter
--- OUTSIDE RECORDS SUMMARY | 2025-01-19 14:40 | XMS_ITS | Encounter Summary ---
Author Organization [facility] Address [address] [place] [address] Care Team Providers Care Video Game Tester Name Role Phone Neil Segundo MD Primary Care Provider [phone] Zenia Hua NP Primary Care Provider [phone] Encounter Details Date Type Department Care Team (Late st Contact Info) Description 07/16/2020 Lab Requisition [facility] [address] Through [address] [place] [phone] Freeman Sheikh MD [address] [place] [address] Encounter for laboratory testing for COVID-19 virus [...] Comments COVID-19 (SARS-COV-2) - [facility] Routine 07/16/2020 2:44 PM EST Encounter for laboratory testing for COVID-19 virus [ICD-10-CM] documented in this encounter Results * COVID-19 (SARS-COV-2) (SEMA4) (07/16/2020 2:44 PM EST) COVID-19 RT-PCR NOT-DETEC ELIZABETH Not-Detec elizabeth 07/17/2020 4:14 PM EST [facility] Comment:Interpretation: The viral RNA was not detected, making the COVID-19 diagnosis less likely. Clinical correlation is highly recommended.Final report signed by Lana Cheng, Ph.D., Laboratory DirectorTests performed at [facility] Nasopharyngeal swab / Unknown 07/16/2020 2:44 PM EST 07/16/2020 2:44 PM EST Narrative [facility] - 07/17/2020 4:14 PM EST Performed by [facility] [address] [place] [address], CLIA# [id number] and [place] License# [id number] Freeman Sheikh MD MICROBIOLOGY - GENERAL ORDER ARISTIDES Final Result [facility] documented in this encounter Visit Diagnoses Diagnosis Encounter for laboratory testing for COVID-19 virus documented in this encounter Care Teams Video Game Tester Relationship Specialty Start Date End Date Neil Segundo MD PCP - General Internal Medicine 03/08/20 11/01/22 Zenia Hua NP [address] [place] [address] PCP - General 11/24/24 documented as of this encounter
--- OUTSIDE RECORDS SUMMARY | 2025-01-19 14:40 | XMS_ITS | Clinical Summary ---
Author Organization [facility] Address [address] [place] [address] Care Team Providers Care Assistant Name Role Phone Zenia Hua SIEBEL DEVELOPER Primary Care Provider [phone] Allergies No known active allergies Medications triamcinolone (KENALOG) 0.025 % creamIndications :Eczema, unspecified type Apply topically 2 (two) times a day. 30 g 1 2 Active Active Problems No known active problems Encounters Date Type Department Care Team Description 11/24/2024 5:45 PM EDT Office Visit [facility] [address] [place] [address] Ralph Marques MD [place], [place], [place] Dysfunction of right eustachian tube (Primary Dx) 11/24/2024 Travel from Last 3 Months Immunizations Immunization Administration Dates Next Due Covid-19 [...] Sign Reading Time Taken Comments Blood Pressure 111/74 11/24/2024 5:40 PM EDT Pulse 51 11/24/2024 5:40 PM EDT Temperature 36.4 C (97.6 F) 11/24/2024 5:40 PM EDT Respiratory Rate 15 11/24/2024 5:40 PM EDT Oxygen Saturation 99% 11/24/2024 5:40 PM EDT Inhaled Oxygen Concentration - - Weight 88.9 kg (196 lb) 11/22/2020 5:52 PM EDT Height 175.3 cm (5' 9 ) 11/22/2020 5:52 PM EDT Body Mass Index 28.94 11/22/2020 5:52 PM EDT Plan of Treatment Health Maintenance Due Date Last Done Comments Hepatitis C Virus Screening 1990 HIV Screening 2005 Hepatitis B Vaccines (1 of 3 - 19+ 3-dose series) 2011 HPV Vaccines (1 - 3-dose SCD M series) 2019 COVID-19 Vaccine (4 - 2023-2 5 season) 2024 07/14/2021, 10/12/2020, 09/14/2020 Influenza Vaccine 12/25/2024 07/05/2021, 03/08/2020 DTaP/Tdap/Td Vaccines (2 - T d or Tdap) 03/08/2030 03/08/2020 Pneumococcal Vaccine: Pediatric (0-5 Years) and At-Risk Patients (6 to 49 Years) Aged Out No longer eligible b ased on patient's age to complete this topic Insurance [employer] HMO * Guarantor: Zenia Guy Account Type Relation to Patient Date of Phone Billing Address [employer] Liability Self 1990 [address] [place] [address] Care Teams Assistant Relationship Specialty Start Date End Date Zenia Hua NP [address] [place] [address] PCP - General 11/24/24
--- OUTSIDE RECORDS SUMMARY | 2025-01-19 14:40 | XMS_ITS | Encounter Summary ---
Author Organization [address] [address] Care Team Providers Care Public Bath Attendant Name Role Phone Neil Segundo MD Primary Care Provider [phone] Zenia Hua NP Primary Care Provider [phone] Encounter Details Date Type Department Care Team ([facility] st Contact Info) Description 03/18/2020 Scanned Document [address] [place] [address] [phone] Neil Segundo MD [address] [place] [phone] Social History Tobacco Use Types Packs/Day Years [...] on filedocumented in this encounter Care Teams Public Bath Attendant Relationship Specialty Start Date End Date Neil Segundo MD PCP - General Internal Medicine 03/08/20 11/01/22 Zenia Hua NP [address] [place] [address] PCP - General 11/24/24 documented as of this encounter
== END 2025-01-19 14:20 | disposition home or self-care (01) ==
LOC: HO.HMCFM 13:42
PROVIDERS: PCP Nurse Practitioner Family; Visit Provider Nurse Practitioner Family
DX: E78.00 Pure hypercholesterolemia, unspecified (principal)